=== PATIENT | male | born 1980 | race Two or more races ===

== ENCOUNTER 2024-07-17 11:24 | Emergency (ER) | payer OTHER ==
[~2024-07-17] VITALS: Ht 172.7 cm; Wt 81.6 kg
[2024-07-17 11:26] VITALS: O2SAT 98
[2024-07-17] MEDS ORDERED: TRAM50TA2 PO (12:00)
[2024-07-17] MEDS ORDERED: CIPR1DRO2 RIGHT EAR (12:00)
[2024-07-17] MEDS ORDERED: KETOROLAC TROMETHAMINE 60 MG INJ IM ONE (12:15)
[2024-07-17] MEDS: KETOROLAC TROMETHAMINE 60 MG INJ IM ONE (12:21)
== END 2024-07-17 12:36 | disposition home or self-care (01) ==
LOC: ER 11:28
DX: H66.91 Otitis media, unspecified, right ear (principal); Z79.899 Other long term (current) drug therapy
CPT/HCPCS: 99283; 96372; J1885; A4606; A4663